=== PATIENT | female | born 1965 | race Caucasian/White ===

== ENCOUNTER 2018-02-10 08:09 | Emergency (ER) | payer BC ==
[2018-02-10 08:26] VITALS: BP 143/88
--- NOTE | 2018-02-10 08:39 | UC ---
Throat Pain/Nasal Prabhjot HPI - HPI Summary HPI Summary: sinus pain and pressure x 3 days + nasal congestion , cough , pnd no fever, no chills - History of Current Complaint Chief Complaint: UCRespiratory Stated Complaint: SINUSES Time Seen by Provider: 02/10/18 08:30 Hx Obtained From: Patient Onset/Duration: Gradual Onset, Lasting Days - 3, Still Present Severity: Moderate Pain Intensity: 4 Cough: Nonproductive Associated Signs & Symptoms: Positive: Sinus Discomfort, Nasal Discharge. Negative: Wheezing, Hoarseness, Fever, Vomiting, Rash - Allergies/Home Medications Allergies/Adverse Reactions: Allergies Allergy/AdvReac Type Severity Reaction Status Date / Time Penicillins AdvReac Hives Verified 02/10/18 08:23 Home Medications: Home Medications Levothyroxine TAB* [Synthroid TAB*] 12.5 mcg PO DAILY 02/10/18 [History Confirmed 02/10/18] PMH/Surg Hx/FS Hx/Imm Hx Respiratory History: Asthma - Surgical History Surgical History: Yes Surgery Procedure, Year, and Place: wisdom teeth. uterine albation. acl/mcl x 2 - Family History Known Family History: Negative: Respiratory Disease - Social History Alcohol Use: Occasionally Substance Use Type: None Smoking Status (MU): Never Smoked Tobacco Review of Systems Constitutional: Negative Skin: Negative Eyes: Negative ENT: Nasal Discharge, Sinus Congestion, Sinus Pain/Tenderness Respiratory: Cough Cardiovascular: Negative Gastrointestinal: Negative Is Patient Immunocompromised?: No All Other Systems Reviewed And Are Negative: Yes Physical Exam Triage Information Reviewed: Yes Appearance: Well-Appearing, No Pain Distress, Well-Nourished Vital Signs: Initial Vital Signs Temp 98.8 F 02/10/18 08:20 Pulse 73 02/10/18 08:20 Resp 18 02/10/18 08:20 BP 143/88 02/10/18 08:20 Pulse Ox 98 02/10/18 08:20 Eyes: Positive: Conjunctiva Clear ENT: Positive: Pharyngeal erythema, Nasal congestion, Nasal drainage, TMs normal. Negative: TM bulging, TM dull, TM red, Hoarse voice, Dental tenderness , Sinus tenderness Neck: Positive: Supple, Nontender, No Lymphadenopathy Respiratory: Positive: Chest non-tender, Lungs clear, Normal breath sounds Cardiovascular: Positive: RRR, No Murmur, Pulses Normal Throat Pain/Nasal Course/Dx - Differential Dx/Diagnosis Provider Diagnoses: URI Discharge - Discharge Plan Condition: Stable Disposition: HOME Prescriptions: Azithromycin TAB* [Zithromax TAB (Z-ZHANG) 250 mg #6 tabs] 2 tab PO .TODAY, THEN 1 DAILY #1 zhang Patient Education Materials: Upper Respiratory Infection (ED) Referrals: Leif Cifuentes [Primary Care Provider] - If Needed Additional Instructions: most likely a viral URI cont. with rest, increase fluid, Mucinex , Flonase may start Zpak if not improving in 5 to 7 days
== END 2018-02-10 08:40 | disposition home or self-care (01) ==
LOC: UCCORT 08:09
DX: J06.9 Acute upper respiratory infection, unspecified (principal); Z88.0 Allergy status to penicillin
CPT/HCPCS: 99202; G0463

== ENCOUNTER 2019-10-23 11:57 | Emergency (ER) | payer BC, OTHER ==
--- OUTSIDE RECORDS SUMMARY | 2019-10-23 12:13 | XMS REPORT | Continuity of Care Document ---
:1965 External Reference #:[id number] Author Name Jake Sotomayor M.D. Address [address] [place] [address] Problems Description No Information Available Social History Type Date Description Comments Sex Unknown ETOH Use Occasionally consumes alcohol Tobacco Use Start: Unknown Patient has never smoked Recreational Drug Use Denies Drug Use Smoking Status Reviewed: 10/27/17 Patient has never smoked Allergies, Adverse Reactions, Alerts Active Allergies Reaction Severity Comments Date Penicillin 08/25/2017 Medications Active Medications SIG Qnty Indications Ordering Provider Date Azithromycin 1 by mouth every 7tabs J20.9 Jake Sotomayor, 09/23/2019 500mg day M.D. Tablets Prednisone 2 tab by mouth 20tabs J20.9 Jake Sotomayor, 09/23/2019 20mg Tablets daily 4 M.D. days,30x3d,20x2d ,10x7d Womens Daily 1 by mouth every 90tabs E55.9 Jake Sotomayor, 03/13/2019 Formula/Folic day M.D. Acid/Calcium/Iron Tablets Proventil HFA 2 unit by mouth 13.4gm J45.909 Jake Sotomayor, 07/06/2018 108(90Base) every 4 hours as M.D. mcg/Act Aerosol needed Levoxyl 1/2 tab by mouth 90tabs E03.9 Jake Sotomayor, 09/15/2017 25mcg Tablets every day M.D. History Medications Flovent HFA 1 puffs twice 36gm J45.909 Jake Sotomayor 04/08/2019 - 110mcg/Act a day MFaraz MFarazDFaraz 07/28/2019 Aerosol Prednisone 2 tab by mouth 20tabs [facility] - 20mg Tablets daily 4 M., M.D. 04/24/2019 days,30x3d,20x 2d,10x7d Azithromycin z leadner uad 6tabs [facility], [facility] 04/08/2019 - 250mg M., M.D. 04/12/2019 Tablets Immunizations CPT Code Status Date Vaccine Lot # [id number] Given 08/09/2019 Flu Virus Vaccine, Quadrivalent, Slit Virus, [place] Use [id number] Given 08/08/2018 Flu Vaccine Vital Signs Date Vital Result Comment 09/23/2019 1:01pm BP Systolic 136 mmHg BP Diastolic 70 mmHg Height 63 inches 5'3" Weight 202.00 lb BMI (Body Mass Index) 35.8 kg/m2 Heart Rate 86 /min Respiratory Rate 16 /min 09/06/2019 10:07am BP Systolic 124 mmHg BP Diastolic 64 mmHg Height 63 inches 5'3" Weight 200.00 lb BMI (Body Mass Index) 35.4 kg/m2 Heart Rate 84 /min Respiratory Rate 16 /min Results Test Acquired Date Facility Test Result H/L Range Note CBC With Diff 08/09/2019 [facility] WBC 5.3 10*3/uL (4.1-11.0) [address] [facility] (607)- - RBC 4.88 10*6/uL (4.00-5.40) HGB 14.4 g/dL (12.0-16.0) HCT 42.5 % (36.0-47.0) MCV 87.1 fL (80.0-95.0) MCH 29.5 pg (27.0-32.0) MCHC 33.8 g/dL (32.0-36.0) RDW 13.6 % (10.5-14.5) PLT 229 10*3/uL (150-450) MPV 8.3 fL (7.1-10.7) Neut % 43.1 % (35.0-75.0) Lymph % 44.3 % (16.0-52.0) [place] % 8.2 % High (0.0-8.0) Eos % 3.6 % (0.0-5.0) Baso % 0.8 % (0.0-4.0) Neut # 2.3 10*3/uL (1.8-7.7) Lymph # 2.4 10*3/uL (1.2-4.8) [place] # 0.4 10*3/uL (0.0-0.8) Eos # 0.2 10*3/uL (0.0-0.5) Baso # 0.0 10*3/uL (0.0-0.2) CMP 08/09/2019 [facility] Sodium 142 mmol/L (136-145) [address] [facility] (605)- - Potassium 4.3 mmol/L (3.6-5.2) Chloride 105 mmol/L (100-108) Co2 31 mmol/L (22-31) Anion Gap 6 mmol/L Low (7-16) Urea Nitrogen 14 mg/dL (7-24) Creatinine 0.83 mg/dL (0.60-1.00) BUN/Creat Ratio 16.9 RATIO (10.0-20.0) Glucose 86 mg/dL (70-99) Calcium 9.2 mg/dL (8.4-10.2) Total Protein 6.7 g/dL (6.4-8.2) Albumin 4.2 g/dL (3.5-4.6) Globulin 2.5 g/dL Low (2.7-4.3) Alb/Glob Ratio 1.7 RATIO Alkaline Phosphatase 72 U/L (45-117) Bilirubin,Total 0.6 mg/dL (0.0-1.0) Ast (Sgot) 14 U/L (11-39) Alt (SGPT) 28 U/L (12-78) GFR >60 ml/min/1.73m2 (>59) GFR ( Amer) >60 ml/min/1.73m2 (>59) GFR Interpretation <SEE NOTE> 1 Laboratory 08/09/2019 [facility] TSH,Ultrasensitive @ 2.780 (0.360- 4.170) test finding [address] [facility] mIU/L (606)- - Free Thyroxine @ 0.96 ng/dL (0.76-1.46) Lipid 08/09/2019 [facility] Cholesterol @ 226 mg/dL High (0-200) [address] [facility] (806)- - Triglyceride @ 85 mg/dL (30-200) HDL Cholesterol @ 54 mg/dL (>40) 2 Chol/HDL Ratio 4.2 RATIO 3 LDL Chol (Calc) 155 mg/dL High (<130) 4 Laboratory test 08/09/2019 [facility] 25 Hydroxy Vit 26 ng/mL Low (31- 100) 5 finding [facility] D @ (607)- - Esr 5 mm/h (0-30) Nuha By Ifa 08/09/2019 [facility] Homogeneous Pattern <50 6 [facility] (607)- - Speckled Pattern <50 7 Peripheral Pattern <50 8 Nucleolar Pattern 50 High 9 Laboratory test 08/09/2019 [facility] Rheumatoid Factor <15 IU/mL (0- 15) finding [facility] @ (607)- - Lyme Disease 08/09/2019 [facility] Lyme Igm/Igg AB @ NEGATIVE (Neg) 10 Antibodies Igg/Igm [facility] (603)- - 1 NORMAL KIDNEY FUNCTION OR MILD DISEASE - GFR >OR= 60 CHRONIC KIDNEY DISEASE - GFR 15 - 59 RENAL FAILURE - GFR <15 Est. GFR calculation based on the MDRD study equation, which assumes a steady state for creatinine. Est. GFR should not be used for medication dosing. 2 PER NCEP ATP III GUIDELINES: RESULTS LOWER THAN 40 MG/DL ARE SUGGESTIVE OF INCREASED RISK FOR CORONARY ARTERY DISEASE. RESULTS > OR = TO 60 MG/DL ARE CONSIDERED A NEGATIVE RISK FACTOR. 3 INTERPRETATION OF CHOL-HDL RATIO CHD RISK FEMALE MALE VERY HIGH >8.3 >14.3 HIGH 5.6- 8.3 6.7- 14.3 AVERAGE 3.7- 5.6 4.0- 6.7 BELOW AVERAGE 2.5- 3.7 2.7- 4.0 PROTECTED <2.5 <2.7 4 PER NCEP ATP III GUIDELINES: OPTIMAL < 100 NEAR OPTIMAL 100 - 129 BORDERLINE HIGH 130 - 159 HIGH 160 - 189 VERY HIGH > 189 5 A REVIEW OF THE LITERATURE SUGGESTS THE FOLLOWING RANGES FOR THE CLASSIFICATION OF 25-OH VITAMIN D STATUS: VITAMIN D STATUS 25-OH VITAMIN D DEFICIENCY <20 NG/ML INSUFFICIENCY 20-30 NG/ML SUFFICIENCY 31 - 100 NG/ML TOXICITY > 100 NG/ML A PEDIATRIC REFERENCE RANGE HAS NOT BEEN ESTABLISHED USING THIS METHOD. 6 Reference range: 0 to 49 Unit: 1/dil 7 Reference range: 0 to 49 Unit: 1/dil 8 Reference range: 0 to 49 Unit: 1/dil 9 Reference range: 0 to 49 Unit: 1/dil PERFORMED AT [facility], [address] [place] [address] 10 A Negative serologic test for Lyme Disease indicates no serologic evidence of infection with B burgdorferi at the time this specimen was collected. A repeat specimen should be collected in 2 to 4 weeks if clinically indicated. Procedures Date Code Description Status 09/23/2019 13787 Spirometry Completed 09/23/2019 40497 Tympanometry Completed 09/06/2019 08901 Visual Screening Test Completed 09/06/2019 33607 EKG Completed 09/06/2019 67067 Audiometry, Bekesy, Screening Completed 04/08/2019 29230 Spirometry Completed 04/08/2019 03764 Tympanometry Completed 11/27/2014 [id number] Colonoscopy Completed Medical Devices Description No Information Available Encounters Type Date Location Provider Dx Diagnosis Office Visit 09/23/2019 Jake Bhat, E03.9 Hypothyroidism, 1:15p M.D. unspecified N95.1 Menopausal and female climacteric states L20.9 Atopic dermatitis, unspecified J30.9 Allergic rhinitis, unspecified E78.2 Mixed hyperlipidemia E66.01 Morbid (severe) obesity due to excess calories M15.9 Polyosteoarthritis, unspecified E55.9 Vitamin D deficiency, unspecified J45.909 Unspecified asthma, uncomplicated R00.2 Palpitations M25.562 Pain in left knee L82.1 Other seborrheic keratosis F34.1 Dysthymic disorder R53.83 Other fatigue M35.8 Other specified systemic involvement of connective tissue J20.9 Acute bronchitis, unspecified J01.40 Acute pansinusitis, unspecified H66.93 Otitis media, unspecified, bilateral Office Visit 09/06/2019 11:00a Jake Bhat, E03.9 Hypothyroidism , M.D. unspecified N95.1 Menopausal and female climacteric states L20.9 Atopic dermatitis, unspecified J30.9 Allergic rhinitis, unspecified E78.2 Mixed hyperlipidemia E66.01 Morbid (severe) obesity due to excess calories M15.9 Polyosteoarthritis, unspecified E55.9 Vitamin D deficiency, unspecified J45.909 Unspecified asthma, uncomplicated R00.2 Palpitations M25.562 Pain in left knee L82.1 Other seborrheic keratosis F34.1 Dysthymic disorder R53.83 Other fatigue Z00.01 Encounter for general adult medical exam w abnormal findings M35.8 Other specified systemic involvement of connective tissue Office Visit 08/09/2019 10:45a Jake Bhat, E03.9 Hypothyroidism , M.D. unspecified N95.1 Menopausal and female climacteric states L20.9 Atopic dermatitis, unspecified J30.9 Allergic rhinitis, unspecified E78.2 Mixed hyperlipidemia E66.01 Morbid (severe) obesity due to excess calories M15.9 Polyosteoarthritis, unspecified E55.9 Vitamin D deficiency, unspecified J45.909 Unspecified asthma, uncomplicated R00.2 Palpitations M25.562 Pain in left knee L82.1 Other seborrheic keratosis F34.1 Dysthymic disorder J01.40 Acute pansinusitis, unspecified J20.9 Acute bronchitis, unspecified R53.83 Other fatigue Office Visit 04/08/2019 9:45a Jake Bhat, E03.9 Hypothyroidism , M.D. unspecified N95.1 Menopausal and female climacteric states L20.9 Atopic dermatitis, unspecified J30.9 Allergic rhinitis, unspecified E78.2 Mixed hyperlipidemia E66.01 Morbid (severe) obesity due to excess calories M15.9 Polyosteoarthritis, unspecified E55.9 Vitamin D deficiency, unspecified J45.909 Unspecified asthma, uncomplicated R00.2 Palpitations M25.562 Pain in left knee L82.1 Other seborrheic keratosis F34.1 Dysthymic disorder R09.81 Nasal congestion R05 Cough J01.40 Acute pansinusitis, unspecified R06.02 Shortness of breath J20.9 Acute bronchitis, unspecified H92.03 Otalgia, bilateral Assessments Date Code Description Provider 09/23/2019 E03.9 Hypothyroidism, unspecified Jake Sotomayor M.D. 09/23/2019 N95.1 Menopausal and female climacteric states Jake Sotomayor M.D. 09/23/2019 L20.9 Atopic dermatitis, unspecified Jake Sotomayor M.D. 09/23/2019 J30.9 Allergic rhinitis, unspecified Jake Sotomayor M.D. 09/23/2019 E78.2 Mixed hyperlipidemia Jake Sotomayor M.D. 09/23/2019 E66.01 Morbid (severe) obesity due to excess Jake Sotomayor M.D. calories 09/23/2019 M15.9 Polyosteoarthritis, unspecified Jake Sotomayor M.D. 09/23/2019 E55.9 Vitamin D deficiency, unspecified Jake Sotomayor M.D. 09/23/2019 J45.909 Unspecified asthma, uncomplicated Jake Sotomayor M.D. 09/23/2019 R00.2 Palpitations Jake Sotomayor M.D. 09/23/2019 M25.562 Pain in left knee Jake Sotomayor M.D. 09/23/2019 L82.1 Other seborrheic keratosis Jake Sotomayor M.D. 09/23/2019 F34.1 Dysthymic disorder Jake Sotomayor M.D. 09/23/2019 R53.83 Other fatigue Jake Sotomayor M.D. 09/23/2019 M35.8 Other specified systemic involvement of Jake Sotomayor M.D. connective tissue 09/23/2019 J20.9 Acute bronchitis, unspecified Jake Sotomayor M.D. 09/23/2019 J01.40 Acute pansinusitis, unspecified Jake Sotomayor M.D. 09/23/2019 H66.93 Otitis media, unspecified, bilateral Jake Sotomayor M.D. 09/06/2019 E03.9 Hypothyroidism, unspecified Jake Sotomayor M.D. 09/06/2019 N95.1 Menopausal and female climacteric states Jake Sotomayor M.D. 09/06/2019 L20.9 Atopic dermatitis, unspecified Jake Sotomayor M.D. 09/06/2019 J30.9 Allergic rhinitis, unspecified Jake Sotomayor M.D. 09/06/2019 E78.2 Mixed hyperlipidemia Jake Sotomayor M.D. 09/06/2019 E66.01 Morbid (severe) obesity due to excess Jake Sotomayor M.D. calories 09/06/2019 M15.9 Polyosteoarthritis, unspecified Jake Sotomayor M.D. 09/06/2019 E55.9 Vitamin D deficiency, unspecified Jake Sotomayor M.D. 09/06/2019 J45.909 Unspecified asthma, uncomplicated Jake Sotomayor M.D. 09/06/2019 R00.2 Palpitations Jake Sotomayor M.D. 09/06/2019 M25.562 Pain in left knee Jake Sotomayor M.D. 09/06/2019 L82.1 Other seborrheic keratosis Jake Sotomayor M.D. 09/06/2019 F34.1 Dysthymic disorder Jake Sotomayor M.D. 09/06/2019 R53.83 Other fatigue Jake Sotomayor M.D. 09/06/2019 Z00.01 Encounter for general adult medical Jake Sotomayor M.D. examination with abnormal findings 09/06/2019 M35.8 Other specified systemic involvement of Jake Sotomayor M.D. connective tissue 08/09/2019 E03.9 Hypothyroidism, unspecified Jake Sotomayor M.D. 08/09/2019 N95.1 Menopausal and female climacteric states Jake Sotomayor M.D. 08/09/2019 L20.9 Atopic dermatitis, unspecified Jake Sotomayor M.D. 08/09/2019 J30.9 Allergic rhinitis, unspecified Jake Sotomayor M.D. 08/09/2019 E78.2 Mixed hyperlipidemia Jake Sotomayor M.D. 08/09/2019 E66.01 Morbid (severe) obesity due to excess Jake Sotomayor M.D. calories 08/09/2019 M15.9 Polyosteoarthritis, unspecified Jake Sotomayor M.D. 08/09/2019 E55.9 Vitamin D deficiency, unspecified Jake Sotomayor M.D. 08/09/2019 J45.909 Unspecified asthma, uncomplicated Jake Sotomayor M.D. 08/09/2019 R00.2 Palpitations Jake Sotomayor M.D. 08/09/2019 M25.562 Pain in left knee Jake Sotomayor M.D. 08/09/2019 L82.1 Other seborrheic keratosis Jake Sotomayor M.D. 08/09/2019 F34.1 Dysthymic disorder Jake Sotomayor M.D. 08/09/2019 J01.40 Acute pansinusitis, unspecified Jake Sotomayor M.D. 08/09/2019 J20.9 Acute bronchitis, unspecified Jake Sotomayor M.D. 08/09/2019 R53.83 Other fatigue Jake Sotomayor M.D. 04/08/2019 E03.9 Hypothyroidism, unspecified Jake Sotomayor M.D. 04/08/2019 N95.1 Menopausal and female climacteric states Jake Sotomayor M.D. 04/08/2019 L20.9 Atopic dermatitis, unspecified Jake Sotomayor M.D. 04/08/2019 J30.9 Allergic rhinitis, unspecified Jake Sotomayor M.D. 04/08/2019 E78.2 Mixed hyperlipidemia Jake Sotomayor M.D. 04/08/2019 E66.01 Morbid (severe) obesity due to excess Jake Sotomayor M.D. calories 04/08/2019 M15.9 Polyosteoarthritis, unspecified Jake Sotomayor M.D. 04/08/2019 E55.9 Vitamin D deficiency, unspecified Jake Sotomayor M.D. 04/08/2019 J45.909 Unspecified asthma, uncomplicated Jake Sotomayor M.D. 04/08/2019 R00.2 Palpitations Jake Sotomayor M.D. 04/08/2019 M25.562 Pain in left knee Jake Sotomayor M.D. 04/08/2019 L82.1 Other seborrheic keratosis Jake Sotomayor M.D. 04/08/2019 F34.1 Dysthymic disorder Jake Sotomayor M.D. 04/08/2019 R09.81 Nasal congestion Jake Sotomayor M.D. 04/08/2019 R05 Cough Jake Sotomayor M.D. 04/08/2019 J01.40 Acute pansinusitis, unspecified Jake Sotomayor M.D. 04/08/2019 R06.02 Shortness of breath Jake Sotomayor M.D. 04/08/2019 J20.9 Acute bronchitis, unspecified Jake Sotomayor M.D. 04/08/2019 H92.03 Otalgia, bilateral Jake Sotomayor M.D. Plan of Treatment Future Appointment(s):02/14/2020 8:30 am - Jake Sotomayor M.D. at [email or web address] - Jake Sotomayor M.D.E03.9 Hypothyroidism, unspecifiedComments:RX REVIEWED AND UPDATEDF/U TSH/ FT4N95.1 Menopausal and female climacteric statesComments:STABLE/IUTWVKZM19.9 Atopic dermatitis, unspecifiedComments:SKIN CARE INSTRUCTIONS LOTION OR BABY OIL 2-3 APPLICATION PER DAYUSE MOISTURIZING SOAPAVOID PROLONGED WATER EXPOSUREAVOID USING HOT WATER IN WQGMDBK66.9 Allergic rhinitis, unspecifiedComments:INCREASE PO FLUID USE ANTIHISTAMINE PRN SECOND HAND SMOKING UHVJSFAEWB43.2 Mixed hyperlipidemiaComments:DIET REVIEWED CONTINUE DIETWT LOSSF/U LAB FBWE66.01 Morbid (severe) obesity due to excess caloriesComments:WT LOSS COUNCELLINGEXERCISEDIET [id number] Polyosteoarthritis, unspecifiedComments:EXERCISE/HEAT/MESSAGETYLENOL OR MOTRIN PRNAVOID HEAVY LIFTINGWT LOSSE55.9 Vitamin D deficiency, unspecifiedComments: INCREASE EXPOSURE TO SUNREVIEW OF DIETJ45.909 Unspecified asthma, uncomplicatedComments:MDI / NEBULIZER TX PRN AVOID EXPOSURE TO SMOKING OR ZSQMTP65.2 PalpitationsComments:STABLE AND ASYMPTOMATIC RELAXATION TECHNIQUES DISCUSSED COUNSELED RE: STRESSORS IN LIFEM25.562 Pain in left kneeComments: EXERCISE/HEAT /MESSAGEAVOID HEAVY LIFTING WT LOSSTYLENOL OR MOTRIN PRNL82.1 Other seborrheic keratosisComments:F/U WITH VGFOJYAWEYAF38.1 Dysthymic disorderComments:COUNCELLING AND REASSURANCE RELAXATION TECHNIQUESSTRESSORS IN LIFE AVOID ALL ENERGY/HIGH CAFFEINE KLRUUOV61.83 Other fatigueComments: INCRFEASE PO FLUIDCOUNCELLING AND REASSURANCE RESTM35.8 Other specified systemic involvement of connective tissueComments:COUNCELLING AND REASSURANCE F/ U WITH NEUROLOGY/ONIJGOFRVNFF68.9 Acute bronchitis, unspecifiedNew Medication: Azithromycin 500 mg - 1 by mouth every dayPrednisone 20 mg - 2 tab by mouth daily 4 days,30x3d,20x2d,66x6mWsbryrtq:INCREASE PO DDNFOVMBBS59.40 Acute pansinusitis, unspecifiedComments:INCREASE PO FLUIDTYLENOL OR MOTRIN PRN ANTIHISTAMINE PRNH66.93 Otitis media, unspecified, bilateralComments:INCREASE PO FLUID TYLENOL OR MOTRIN PRN ANTIHISTAMINE PRN Functional Status Description No Information Available Mental Status Description No Information Available Referrals Description No Information Available
--- OUTSIDE RECORDS SUMMARY | 2019-10-23 12:13 | XMS REPORT | Continuity of Care Document ---
:1965 External Reference #:[id number] Author Name Jake Sotomayor M.D. Address [address] [place] [address] Problems Description No Information Available Social History Type Date Description Comments Sex Unknown ETOH Use Occasionally consumes alcohol Tobacco Use Start: Unknown Patient has never smoked Recreational Drug Use Denies Drug Use Smoking Status Reviewed: 10/27/17 Patient has never smoked Allergies, Adverse Reactions, Alerts Active Allergies Reaction Severity Comments Date Penicillin 08/25/2017 Medications Active Medications SIG Qnty Indications Ordering Provider Date Womens Daily 1 by mouth every 90tabs E55.9 Jake Sotomayor, 03/13/2019 Formula/Folic day M.D. Acid/Calcium/Iron Tablets Proventil HFA 2 unit by mouth 13.4gm J45.909 Jake Sotomayor, 07/06/2018 every 4 hours as M.D. 108(90Base) mcg/Act needed Aerosol Levoxyl 1/2 tab by mouth 90tabs E03.9 Jake Sotomayor, 09/15/2017 25mcg Tablets every day M.D. History Medications Flovent HFA 1 puffs twice 36gm J45.909 Jake Sotomayor 04/08/2019 - 110mcg/Act a day M., M.D. 07/28/2019 Aerosol Prednisone 2 tab by mouth 20tabs Jake Sotomayor 04/08/2019 - 20mg Tablets daily 4 M., M.D. 04/24/2019 days,30x3d,20x 2d,10x7d Azithromycin z leander uad 6tabs Jake Sotomayor 04/08/2019 - 250mg M., M.D. 04/12/2019 Tablets Azithromycin 1 by mouth 7tabs J18.9 Jake Sotomayor 03/13/2019 - 500mg every day M., M.D. 03/19/2019 Tablets Prednisone 2 tab by mouth 8tabs J18.9 Jake Sotomayor 03/13/2019 - 20mg Tablets daily 4 days M., M.D. 03/16/2019 Immunizations CPT Code Status Date Vaccine Lot # [id number] Given 08/09/2019 Flu Virus Vaccine, Quadrivalent, Slit Virus, Im Use [id number] Given 08/08/2018 Flu Vaccine Vital Signs Date Vital Result Comment 09/06/2019 10:07am BP Systolic 124 mmHg BP Diastolic 64 mmHg Height 63 inches 5'3" Weight 200.00 lb BMI (Body Mass Index) 35.4 kg/m2 Heart Rate 84 /min Respiratory Rate 16 /min 08/09/2019 10:37am BP Systolic 126 mmHg BP Diastolic 66 mmHg Height 63 inches 5'3" Weight 200.00 lb BMI (Body Mass Index) 35.4 kg/m2 Heart Rate 80 /min Respiratory Rate 16 /min Results Test Date Facility Test Result H/L Range Note CBC With Diff 08/09/2019 [facility] WBC 5.3 10*3/uL (4.1-11.0) [address] (607)- - RBC 4.88 10*6/uL (4.00-5.40) HGB 14.4 g/dL (12.0-16.0) HCT 42.5 % (36.0-47.0) MCV 87.1 fL (80.0-95.0) MCH 29.5 pg (27.0-32.0) MCHC 33.8 g/dL (32.0-36.0) RDW 13.6 % (10.5-14.5) PLT 229 10*3/uL (150-450) MPV 8.3 fL (7.1-10.7) Neut % 43.1 % (35.0-75.0) Lymph % 44.3 % (16.0-52.0) [place] % 8.2 % High (0.0-8.0) Eos % 3.6 % (0.0-5.0) Baso % 0.8 % (0.0-4.0) Neut # 2.3 10*3/uL (1.8-7.7) Lymph # 2.4 10*3/uL (1.2-4.8) [place] # 0.4 10*3/uL (0.0-0.8) Eos # 0.2 10*3/uL (0.0-0.5) Baso # 0.0 10*3/uL (0.0-0.2) CMP 08/09/2019 [facility] Sodium 142 mmol/L (136-145) [address] (606)- - Potassium 4.3 mmol/L (3.6-5.2) Chloride 105 [...] Interpretation <SEE NOTE> 1 Laboratory 08/09/2019 [facility] TSH,Ultrasensitive @ 2.780 (0.360- 4.170) test finding [address] mIU/L (602)- - Free Thyroxine @ 0.96 ng/dL (0.76-1.46) Lipid 08/09/2019 [facility] Cholesterol @ 226 mg/dL High (0-200) [address] (079)- - Triglyceride @ 85 mg/dL (30-200) HDL Cholesterol @ 54 mg/dL (>40) 2 Chol/HDL Ratio 4.2 RATIO 3 LDL Chol (Calc) 155 mg/dL High (<130) 4 Laboratory test 08/09/2019 [facility] 25 Hydroxy Vit 26 ng/mL Low (31- 100) 5 finding [address] @ (607)- - Esr 5 mm/h (0-30) Nuha By If[facility] 08/09/2019 [facility] Homogeneous Pattern <50 6 [address] (607)- - Speckled Pattern <50 7 Peripheral Pattern <50 8 Nucleolar Pattern 50 High 9 Laboratory test 08/09/2019 [facility] Rheumatoid Factor <15 IU/mL (0- 15) finding [address] @ (607)- - Lyme Disease 08/09/2019 [facility] Lyme Igm/Igg AB @ NEGATIVE (Neg) 10 Antibodies Igg/Igm [address] [facility] [address] [facility] (60)- - 1 NORMAL KIDNEY FUNCTION OR MILD [...] 0 to 49 Unit: 1/dil PERFORMED AT [facility], [address] [place] [address] 10 A Negative serologic test for Lyme Disease indicates no serologic evidence of infection with B burgdorferi at the time this specimen was collected. A repeat specimen should be collected in 2 to 4 weeks if clinically indicated. Procedures Date Code Description Status 09/06/2019 31633 Visual Screening Test Completed 09/06/2019 07891 EKG Completed 09/06/2019 68259 Audiometry, Bekesy, Screening Completed 04/08/2019 51776 Spirometry Completed 04/08/2019 82602 Tympanometry Completed 03/13/2019 25448 Spirometry Completed 03/13/2019 87300 Tympanometry Completed 11/27/2014 [id number] Colonoscopy Completed Medical Devices Description No Information Available Encounters Type Date Location Provider Dx Diagnosis Office Visit 09/06/2019 Jake Bhat, E03.9 Hypothyroidism, 11:00a M.D. unspecified N95.1 Menopausal and female climacteric [...] J20.9 Acute bronchitis, unspecified H92.03 Otalgia, bilateral Office Visit 03/13/2019 2:15p Jake Bhat, E03.9 Hypothyroidism , M.D. unspecified [...] Shortness of breath J20.9 Acute bronchitis, unspecified J18.9 Pneumonia, unspecified organism Assessments Date Code Description Provider 09/06/2019 E03.9 Hypothyroidism, unspecified Jake Sotomayor M.D. [...] Sotomayor M.D. 04/08/2019 J30.9 Allergic rhinitis, unspecified BranJake ramos M.D. 04/08/2019 E78.2 Mixed hyperlipidemia Jake Sotomayor M.D. 04/08/2019 E66.01 Morbid (severe) obesity due to excess Jake Sotomayor M.D. calories 04/08/2019 M15.9 Polyosteoarthritis, unspecified BranJake ramos M.D. 04/08/2019 E55.9 Vitamin D deficiency, unspecified [...] 04/08/2019 H92.03 Otalgia, bilateral Jake Sotomayor M.D. 03/13/2019 E03.9 Hypothyroidism, unspecified Jake Sotomayor M.D. 03/13/2019 N95.1 Menopausal and female climacteric states Jake Sotomayor M.D. 03/13/2019 L20.9 Atopic dermatitis, unspecified Jake Sotomayor M.D. 03/13/2019 J30.9 Allergic rhinitis, unspecified Jake Sotomayor M.D. 03/13/2019 E78.2 Mixed hyperlipidemia Jake Sotomayor M.D. 03/13/2019 E66.01 Morbid (severe) obesity due to excess Jake Sotomayor M.D. calories 03/13/2019 M15.9 Polyosteoarthritis, unspecified Jake Sotomayor M.D. 03/13/2019 E55.9 Vitamin D deficiency, unspecified Jake Sotomayor M.D. 03/13/2019 J45.909 Unspecified asthma, uncomplicated Jake Sotomayor M.D. 03/13/2019 R00.2 Palpitations Jake Sotomayor M.D. 03/13/2019 M25.562 Pain in left knee Jake Sotomayor M.D. 03/13/2019 L82.1 Other seborrheic keratosis Jake Sotomayor M.D. 03/13/2019 F34.1 Dysthymic disorder Jake Sotomayor M.D. 03/13/2019 R09.81 Nasal congestion Jake Sotomayor M.D. 03/13/2019 R05 Cough Jake Sotomayor M.D. 03/13/2019 J01.40 Acute pansinusitis, unspecified Jake Sotomayor M.D. 03/13/2019 R06.02 Shortness of breath Jake Sotomayor M.D. 03/13/2019 J20.9 Acute bronchitis, unspecified Jake Sotomayor M.D. 03/13/2019 J18.9 Pneumonia, unspecified organism Jake Sotomayor M.D. Plan of Treatment 09/06/2019 - Jake Sotomayor M.D.E03.9 Hypothyroidism, unspecifiedComments:RX REVIEWED AND UPDATEDF/U TSH/ UU1Bxpxws up:6 months.N95.1 Menopausal and female climacteric statesComments:STABLE/MNVVSNVO69.9 Atopic dermatitis, unspecifiedComments:SKIN CARE INSTRUCTIONS LOTION OR BABY OIL 2-3 APPLICATION PER DAYUSE MOISTURIZING SOAPAVOID PROLONGED WATER EXPOSUREAVOID USING HOT WATER IN UBGJINI00.9 Allergic rhinitis, unspecifiedComments:INCREASE PO FLUID USE ANTIHISTAMINE PRN SECOND HAND SMOKING XESONXLYRT99.2 Mixed hyperlipidemiaComments:DIET REVIEWED CONTINUE DIETWT LOSSF/U LAB FBWE66.01 Morbid (severe) obesity due to excess caloriesComments:WT LOSS COUNCELLINGEXERCISEDIET LENFPFERCTQR82.9 Polyosteoarthritis, unspecifiedComments :EXERCISE/HEAT/MESSAGETYLENOL OR MOTRIN PRNAVOID HEAVY LIFTINGWT LOSSE55.9 Vitamin D deficiency, unspecifiedComments:INCREASE EXPOSURE TO SUNREVIEW OF DIETJ45.909 Unspecified asthma, uncomplicatedComments:MDI / NEBULIZER TX PRN AVOID EXPOSURE TO SMOKING OR VZQESX55.2 PalpitationsComments:STABLE AND ASYMPTOMATIC RELAXATION TECHNIQUES DISCUSSED COUNSELED RE: STRESSORS IN LIFEM25.562 Pain in left kneeComments:EXERCISE/HEAT /MESSAGEAVOID HEAVY LIFTING WT LOSSTYLENOL OR MOTRIN PRNL82.1 Other seborrheic keratosisComments:F/U WITH QOMHUIVLGGLT19.1 Dysthymic disorderComments:COUNCELLING AND REASSURANCE RELAXATION TECHNIQUESSTRESSORS IN LIFE AVOID ALL ENERGY/HIGH CAFFEINE TWTODQF48.83 Other fatigueComments:INCRFEASE PO FLUIDCOUNCELLING AND REASSURANCE RESTZ00.01 Encounter for general adult medical examination with abnormal findingsComments:GOOD NUTRITION /EXERCISEDENTAL/ FLOSSING/ SELF CAREDROWNING/ SUN SAFETYSEAT BELT/ DRIVING SAFETYSPORT BIKE/ HELMET USESPORTS/ INJURY PREVENTIONVIOLENCE PREVENTION/ GUN SAFETYPARENTING ADVICE"SAFE AT HOME "SEX EDUCATION/ COUNSELINGBREAST/ TESTICULAR SELF EXAMEDUCATION GOALS/ ACTIVITIESLIMIT TV/ INTERNETUSETOBACCO/ ALCOHOL/ DRUGS/ INHALANTSPEER REFUSAL SKILLSSOCIAL INTERACTIONFAMILY FUNCTIONINGSELF CONTROLDEPRESSION/ ANXIETYNEXT APPOINTMENTYEARLY PHYSICAL WELLNESS EVALUATIONF/U WITH OB /BEVERAGE HOST FOR PAP AND LNHIMVJDCU22.8 Other specified systemic involvement of connective tissueComments :COUNCELLING AND REASSURANCE F/U WITH NEUROLOGY/REUMATOLOGY Functional Status Description No Information Available Mental Status Description No Information Available Referrals Description No Information Available
[2019-10-23 12:23] VITALS: BP 143/77
--- NOTE | 2019-10-23 12:27 | UC ---
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 Variable episodes: felt fine this morning and walked on her treadmill without symptoms, but had increase in cough and wheeze when she was loading groceries outside in the cold wind. Took oral prednisone x 14 days last month, and an antibiotic with improvement. Does not have sore throat, fever, headache or symptoms of acute illness. Hx of asthma, has not been prescribed a steroid inhaler, and has overall had minimal symptoms in the last decade. She is doing home renovations although she wears a mask. - History of Current Complaint Chief Complaint: UCRespiratory Stated Complaint: WHEEZY COUGH WINDED Time Seen by Provider: 10/23/19 12:26 Hx Obtained From: Patient Hx Last Menstrual Period: s/p Uterine Ablation Onset/Duration: Gradual Onset, Lasting Days Timing: Intermittent Episodes Severity Initially: Mild Severity Currently: Moderate Pain Intensity: 0 Character: Cough: Nonproductive Aggravating Factors: Recumbent Position - worse at night when she can hear wheezing. Alleviating Factors: Bronchodilator Associated Signs And Symptoms: Positive: Dyspnea, Wheezing - Risk Factors Pulmonary Embolism Risk Factors: Negative Cardiac Risk Factors: Negative Pseudomonas Risk Factors: Negative Tuberculosis Risk Factors: Negative - Allergies/Home Medications Allergies/Adverse Reactions: Allergies Allergy/AdvReac Type Severity Reaction Status Date / Time Penicillins Allergy Hives Verified 10/23/19 12:18 Home Medications: Home Medications Albuterol HFA INHALER* [Ventolin HFA Inhaler*] 1 - 2 puff INH Q4H PRN 10/23/19 [ History Confirmed 10/23/19] PMH/Surg Hx/FS Hx/Imm Hx Endocrine History: Hypothyroidism Respiratory History: Asthma - Surgical History Surgical History: Yes Surgery Procedure, Year, and Place: wisdom teeth. uterine albation. acl/mcl x 2 - Family History Known Family History: Positive: Other - father has had stroke; mother age 66, possibly influenza Negative: Respiratory Disease - Social History Occupation: Employed Full-time Lives: With Family Alcohol Use: Occasionally Substance Use Type: None Smoking Status (MU): Former Smoker Review of Systems All Other Systems Reviewed And Are Negative: Yes Constitutional: Positive: Negative Skin: Positive: Negative Eyes: Positive: Negative ENT: Positive: Negative Respiratory: Positive: Shortness Of Breath, Cough Cardiovascular: Negative: Palpitations, Chest Pain Gastrointestinal: Positive: Negative Genitourinary: Positive: Negative Motor: Positive: Negative Neurovascular: Positive: Negative Musculoskeletal: Positive: Negative Neurological: Positive: Negative Psychological: Positive: Negative Is Patient Immunocompromised?: No Physical Exam Triage Information Reviewed: Yes Appearance: Well-Appearing, No Pain Distress Vital Signs: Initial Vital Signs Temp 98.4 F 10/23/19 12:17 Pulse 78 10/23/19 12:17 Resp 16 10/23/19 12:17 BP 143/77 10/23/19 12:17 Pulse Ox 98 10/23/19 12:17 Eyes: Positive: Conjunctiva Clear ENT: Positive: Pharynx normal, TM dull - mild bilateral serous fluid. Negative : Tonsillar swelling, Tonsillar exudate Neck: Positive: Supple, Nontender, No Lymphadenopathy Respiratory: Positive: Decreased breath sounds, Wheezing - prolonged expiration with wheezing throughout. Cardiovascular: Positive: RRR, No Murmur Musculoskeletal Exam: Normal Neurological Exam: Normal Neurological: Positive: Alert Psychological Exam: Normal Skin Exam: Normal Respiratory Course/Dx - Course Course Of Treatment: Albuterol nebulizer given here with improvement. Suggested increasing use of anthistamines, adding short course of oral steroids , along with inhaled corticosteroid. - Differential Dx/Diagnosis Differential Diagnosis/HQI/PQRI: Asthma, Bronchitis, Lower Resp Infection Provider Diagnosis: Asthma Discharge ED - Sign-Out/Discharge Documenting (check all that apply): Patient Departure All imaging exams completed and their final reports reviewed: No Studies - Discharge Plan Condition: Stable Disposition: HOME Prescriptions: Fluticasone HFA 110 mcg(NF) [Flovent HFA 110 mcg(NF)] 2 puff INH BID #1 mdi predniSONE [Prednisone 20 MG TAB] 40 mg PO DAILY #10 tablet Patient Education Materials: Asthma (ED) Referrals: Family [facility] [Primary Care Provider] - Additional Instructions: Your symptoms are most consistent with asthma, possibly a result of increased dust exposure. Continue daily antihistamine, although you might change from loratidine to fexofenadine 180mg daily or cetirazine 10mg daily. These are more potent antihistamines. Add oral prednisone for 3 to 5 days, while beginning use of a steroid inhaler. You can stop oral prednisone once you notice improvement as determined by decreasing shortness of breath and wheezing. INHALANT USE IS IMPROVED BU USING A SPACER DEVICE FOR THE INHALER (You think that you have one at home.). Schedule a follow up visit with your primary care office to determine if more testing is needed. You can decrease the oral steroid slowly, decreasing to 2 puffs once daily after you no longer feel the need to use albuterol. RINSE YOUR MOUTH WITH WATER AND SPIT IT OUT AFTER SWISHING TO DECREASE THE RISK OF ORAL THRUSH WITH INHALED STEROID USE. - Billing Disposition and Condition Condition: STABLE Disposition: Home
[2019-10-23] MEDS ORDERED: Albuterol 2.5 MG/3 ML NEB.SOL* (0.083%) INH ONE (12:43)
== END 2019-10-23 13:36 | disposition home or self-care (01) ==
LOC: UCCORT 11:57
DX: J45.909 Unspecified asthma, uncomplicated (principal); Z88.0 Allergy status to penicillin; Z87.891 Personal history of nicotine dependence
CPT/HCPCS: 99212; G0463